=== PATIENT | male | born 1980 | race Hispanic/Latino ===

== ENCOUNTER 2021-08-16 09:14 | Emergency (ER) | payer SELFPAY ==
[~2021-08-16] VITALS: Ht 157.5 cm; Wt 58.0 kg
[2021-08-16 10:28] LABS: GFR > 60 ML/MIN (>=60 (CALC)); GFR FOR AFR.AMER. > 60 ML/MIN (>=60 (CALC))
[2021-08-16 10:32] LABS: HEMATOCRIT 43.4 % (39.0-50.0); HEMOGLOBIN 13.9 g/dl (14.0-18.0); MEAN CORPUSCULAR HGB 31.4 pG CALC (26.0-32.0); NEUT# 5.85 thou/uL (1.82-7.42); RED BLOOD COUNT 4.43 mill/uL (4.70-6.10); RED CELL DISTRI WIDTH 14.1 % (11.5-15.5)
[2021-08-16 10:50] LABS: ALBUMIN 4.4 g/dL (3.2-5.0); ALKALINE PHOSPHATASE 82 u/l (38-126); ANION GAP 13 (6-22 (CALC)); BILIRUBIN, TOTAL 0.8 mg/dL (0.0-1.4); BUN 17 mg/dL (9-20); BUN/CREATININE RATIO 27 (12-20 (CALC)); CARBON DIOXIDE 26 mmol/l (22-30); CHLORIDE 105 mmol/l (95-108); CREATININE 0.6 mg/dL (0.7-1.3); ETHYL ALCOHOL 0 mg/dl (0-30); GFR > 60 ML/MIN (>=60 (CALC)); GFR FOR AFR.AMER. > 60 ML/MIN (>=60 (CALC)); LIPASE 41 u/l (23-300); SGOT/AST 26 u/l (17-59); SODIUM 140 mmol/l (137-146)
[2021-08-16 11:13] LABS: ACT PARTIAL THROMBO TIME 20.5 SECONDS (20.0-32.5); PROTHROMBIN TIME 10.2 SECONDS (9.0-12.5)
[2021-08-16 11:46] VITALS: BP 136/73
== END 2021-08-16 11:59 | disposition short-term general hospital (02) | DRG 66 ==
LOC: ED 09:14
DX: I63.9 Cerebral infarction, unspecified (principal); R42 Dizziness and giddiness; R29.700 NIHSS score 0
CPT/HCPCS: Q9967